=== PATIENT | female | born 1965 | race Two or more races ===

== ENCOUNTER 2021-01-06 12:29 | Inpatient (IN) | payer OTHER ==
[~2021-01-06] VITALS: Ht 157.5 cm; Wt 56.7 kg
[2021-01-06] MEDS ORDERED: CLONAZEPAM1 GM MC (13:05)
[2021-01-14] MEDS ORDERED: PROTONIX IV40 MG PO (11:46)
[2021-01-14] MEDS ORDERED: AMOX1TAB5 PO (11:46)
== END 2021-01-14 13:15 | disposition home or self-care (01) | DRG 446 ==
LOC: ER 12:29 → MEDI 01-07 00:58 → SEC-K 01-07 00:58 → MEDI 01-07 01:10
PROVIDERS: ADMIT Surgery; ATTEND Surgery
PROC: BF37ZZZ Magnetic Resonance Imaging (MRI) of Pancreas (ICD-10-PCS; principal; 2021-01-07)
PROC: BW40ZZZ Ultrasonography of Abdomen (ICD-10-PCS; 2021-01-10)
DX: K80.10 Calculus of gallbladder with chronic cholecystitis without obstruction (principal); F41.8 Other specified anxiety disorders; F32.9 Major depressive disorder, single episode, unspecified; I10 Essential (primary) hypertension; Z20.822 Contact with and (suspected) exposure to COVID-19; E87.6 Hypokalemia; Z53.09 Procedure and treatment not carried out because of other contraindication